=== PATIENT | male | born 1945 | race Caucasian/White ===

== ENCOUNTER 2018-07-22 00:13 | Emergency (ER) | payer MEDICARE ==
[2018-07-22] MEDS ORDERED: NS 0.9% 1000 ML** 1,000 ML IV ONE (01:05)
[2018-07-22] MEDS ORDERED: Diltiazem TAB* 60 MG PO ONE (01:06)
--- NOTE | 2018-07-22 01:24 | ED ---
GI/ HPI - HPI Summary HPI Summary: The patient is a 73 year old male who is presenting to the [facility] via ambulance with a chief complaint of urinary retention. The onset of the Urinary rentention was 8 hours prior to [facility] arrival. The patient discusses that he has been able to urinate a small amount. He denies N/V as well as back pain. The patient reports of diaphoresis. Symptoms are aggravated by nothing. Symptoms are alleviated by nothing. The pain is rated to be 10/10 in severity. He wishes to see a urologist as per RN/Triage report. - History of Current Complaint Chief Complaint: EDUrogenitalProblems Time Seen by Provider: 07/22/18 00:43 Stated Complaint: "I NEED TO SEE A UROLOGIST" PER PT Hx Obtained From: Patient Onset/Duration: Started Hours Ago - 8 hours ago on 07/21/18 Timing: Constant, Lasting Hours - 8 hours Severity: Severe Current Severity: Severe Pain Intensity: 10 Associated Signs and Symptoms: Positive: Diaphoresis, Cough, Other: - Urinary retention. Negative back pain. Negative: Nausea, Vomiting - Allergy/Home Medications Allergies/Adverse Reactions: Allergies Allergy/AdvReac Type Severity Reaction Status Date / Time No Known Allergies Allergy Verified 07/22/18 00:24 PMH/Surg Hx/FS Hx/Imm Hx Endocrine/Hematology History: Denies: Hx Diabetes, Hx Thyroid Disease Cardiovascular History: Reports: Hx Hypertension Respiratory History: Denies: Hx Asthma, Hx Chronic Obstructive Pulmonary Disease (COPD) GI History: Denies: Hx Ulcer Infectious Disease History: No Infectious Disease History: Denies: Hx Clostridium Difficile, Hx Hepatitis, Hx Human Immunodeficiency Virus (HIV), Hx of Known/Suspected MRSA, Hx Shingles, Hx Tuberculosis, Traveled Outside the in Last 30 Days - Family History Known Family History: Positive: Hypertension Family History: Cancer - Social History Occupation: Retired Alcohol Use: Daily Alcohol Amount: 1-2 glasses wine most days Substance Use Type: Reports: None Type: Cigarettes Amount Used/How Often: 1 ppd+ Review of Systems Positive: Skin Diaphoresis Eyes: Negative ENT: Negative Cardiovascular: Negative Respiratory: Negative Negative: Vomiting, Nausea Genitourinary: Other - Urinary retention Musculoskeletal: Other - Negative back pain Skin: Negative Neurological: Negative Psychological: Normal All Other Systems Reviewed And Are Negative: Yes Physical Exam - Summary Physical Exam Summary: Appearance: Well-appearing, Well-nourished, lying in bed comfortable Skin: Warm, dry, no obvious rash Eyes: sclera anicteric, no conjunctival pallor ENT: mucous membranes moist Neck: deferred Respiratory: No signs of respiratory distress Cardiovascular: Appears well perfused, pulses are nml Abdomen: deferred Musculoskeletal: Moving all 4 extremities without obvious discomfort Neurological: Awake and alert, mentation is normal, speech is fluent and appropriate Psychiatric: affect is normal, does not appear anxious or depressed Triage Information Reviewed: Yes Vital Signs On Initial Exam: Initial Vitals Temp Pulse Resp BP Pulse Ox 97.0 F 145 20 112/86 95 07/22/18 00:21 07/22/18 00:21 07/22/18 00:21 07/22/18 00:21 07/22/18 00:21 Vital Signs Reviewed: Yes Diagnostics - Vital Signs Vital Signs Temp Pulse Resp BP Pulse Ox 07/22/18 00:21 97.0 F 145 20 112/86 95 - Laboratory Result Diagrams: 07/22/18 01:23 07/22/18 01:23 Lab Statement: Any lab studies that have been ordered have been reviewed, and results considered in the medical decision making process. - EKG 0100 EKG Rhythm: Atrial Fibrillation - 141 bpm Summary of EKG Findings: An EKG reveals at 0100 AFib at 141 bpm with RVR, probable anteroseptal (old) GIGU Course/Dx - Course Course Of Treatment: The patient is a 73 year old male who is presenting to the [facility] with a chief complaint of urinary rentention. We had used a catheter to relieve the patient of his urine. During his stay in the [facility], the HR had become elevated. He received an EKG in the [facility] and reveal AFib wtih RVR. The patient's HR was observed and had decreased to a stable rate. The patient tells me he has a history of intermittent atrial fibrillation, and he is asymptomatic with this. I do not believe he needs to be hospitalized for this problem. I will start him on Cardizem for the time being. The physical exam reveals unremarkable findings. The patient will be discharged home with a dx of urinary retention and Afib with rapid ventricular response. - Diagnoses Provider Diagnoses: Atrial fibrillation with rapid ventricular response, Urinary retention Discharge - Sign-Out/Discharge Documenting (check all that apply): Patient Departure - Discharge Home Patient Received Moderate/Deep Sedation with Procedure: No - Discharge Plan Condition: Good Disposition: HOME Prescriptions: Diltiazem CD CAP* [Cardizem CD CAP*] 120 mg PO DAILY #15 cap.cd Patient Education Materials: Urinary Retention in Men (ED), Schwartz Catheter Placement and Care (ED) Referrals: Randy Ramirez MD [Medical Doctor] - Calvin Thompson MD [Medical Doctor] - Josiah Colbert MD [Medical Doctor] - Additional Instructions: Contact the urologist's office tomorrow for a followup. Leave the catheter in place until they can evaluate you. You should also consult a carton packaging machine operator about your atrial fibrillation. You may need further treatment such as an anticoagulant medication. I have prescribed some medication to control the heart rate, this will also probably need adjustment. - Billing Disposition and Condition Condition: GOOD Disposition: Home - Attestation Statements Document Initiated by Scribe: Yes Documenting Scribe: Beto Coon Provider For Whom Bill is Documenting (Include Credential): Dr. Shamar Steward Scribe Attestation: I, Beto Coon, scribed for Dr. Shamar Steward on 07/23/18 at 0507. Scribe Documentation Reviewed: Yes Provider Attestation: The documentation as recorded by the Beto gallagher accurately reflects the service I personally performed and the decisions made by me, Dr. Shamar Steward Status of Scribe Document: Viewed
[2018-07-22 01:36] LABS: ABS Basophils 0.1 10^3/ul (0-0.2); ABS Eosinophils 0 10^3/ul (0-0.6); ABS Lymphocytes 1.2 10^3/ul (1.0-4.8); ABS Monocytes 0.5 10^3/ul (0-0.8); ABS Neutrophils 7.9 10^3/ul (1.5-7.7); ABS Nucleated RBC 0 10^3/ul; Eosinophil % 0.4 %; Hematocrit 48 % (36-46); Hemoglobin 15.9 g/dL (14.0-18.0); Lymphocyte % 12.6 %; Mean Corpuscular HGB Conc 34 g/dL (31-36); Mean Corpuscular Hemoglobin 29 pg (27-31); Mean Corpuscular Volume 86 fL (80-94); Mean Platelet Volume 9.6 fL (7.4-10.4); Nucleated Red Blood Cells % 0; Platelet Count 161 10^3/uL (150-450); Red Blood Count 5.55 10^6 /uL (4.18-5.48); Red Cell Distribution Width 14 % (10.5-15); White Blood Count 9.8 10^3/uL (3.5-10.8)
[2018-07-22 01:51] LABS: Albumin 4.5 g/dL (3.2-5.2); Albumin/Globulin Ratio 1.4 (1-3); Calcium 9.6 mg/dL (8.6-10.3); EGFR African American 68.1 (>60); EGFR Non-African American 56.3 (>60); Globulin 3.2 g/dL (2-4); Total Bilirubin 0.5 mg/dL (0.2-1.0); Total Protein 7.7 g/dL (6.4-8.9)
[2018-07-22 02:05] LABS: TSH (Thyroid Stimulating Horm) 2.35 mcIU/mL (0.34-5.60)
[2018-07-22 02:48] VITALS: BP 101/58
== END 2018-07-22 02:46 | disposition home or self-care (01) ==
LOC: ED 00:13
DX: I48.91 Unspecified atrial fibrillation (principal); R33.9 Retention of urine, unspecified; F17.210 Nicotine dependence, cigarettes, uncomplicated; I10 Essential (primary) hypertension
CPT/HCPCS: 36415; 80053; 84443; 84484; 85025; 93005; 96360; 96361; 99283; A9270-GY

== ENCOUNTER 2018-08-06 21:46 | Emergency (ER) | payer MEDICARE ==
--- NOTE | 2018-08-06 22:41 | ED ---
GI/ HPI - HPI Summary HPI Summary: This patient is a 73 year old M presenting to [facility] with a chief complaint of urinary retention that began approximately 2 weeks ago. The patient rates the pain 5/10 in severity. Symptoms aggravated by nothing. Symptoms alleviated by nothing. Patient reports dysuria. Patient states he has previously had a catheter for these symptoms. - History of Current Complaint Chief Complaint: EDUrogenitalProblems Time Seen by Provider: 08/06/18 22:33 Stated Complaint: RENAL PROBLEMS PER PT Hx Obtained From: Patient Onset/Duration: Started Weeks Ago, Atraumatic, Still Present Timing: Constant Severity: Moderate Current Severity: Moderate Pain Intensity: 5 Associated Signs and Symptoms: Positive: Dysuria Aggravating Factor(s): Nothing Alleviating Factor(s): Nothing - Allergy/Home Medications Allergies/Adverse Reactions: Allergies Allergy/AdvReac Type Severity Reaction Status Date / Time No Known Allergies Allergy Verified 08/06/18 21:50 PMH/Surg Hx/FS Hx/Imm Hx Previously Healthy: No Endocrine/Hematology History: Denies: Hx Diabetes, Hx Thyroid Disease Cardiovascular History: Reports: Hx Hypertension Respiratory History: Denies: Hx Asthma, Hx Chronic Obstructive Pulmonary Disease (COPD) GI History: Denies: Hx Ulcer History: Denies: Hx Renal Disease Infectious Disease History: No Infectious Disease History: Denies: Hx Clostridium Difficile, Hx Hepatitis, Hx Human Immunodeficiency Virus (HIV), Hx of Known/Suspected MRSA, Hx Shingles, Hx Tuberculosis, Traveled Outside the [place] in Last 30 Days - Family History Known Family History: Positive: Hypertension Family History: Cancer - Social History Occupation: Retired Lives: Alone Alcohol Use: Daily Alcohol Amount: 1-2 glasses wine most days Hx Substance Use: No Substance Use Type: Reports: None Hx Tobacco Use: Yes Smoking Status (MU): Heavy Every Day Tobacco Smoker Type: Cigarettes Amount Used/How Often: 1 ppd+ Review of Systems Negative: Fever Genitourinary: Other - Positive urinary retention Positive: dysuria All Other Systems Reviewed And Are Negative: Yes Physical Exam - Summary Physical Exam Summary: VITAL SIGNS: Reviewed. GENERAL: Patient is a well-developed and nourished male who is lying comfortable in the stretcher. Patient is not in any acute respiratory distress. HEAD AND FACE: No signs of trauma. No ecchymosis, hematomas or skull depressions. No sinus tenderness. EYES: PERRLA, EOMI x 2, No injected conjunctiva, no nystagmus. EARS: Hearing grossly intact. Ear canals and tympanic membranes are within normal limits. MOUTH: Oropharynx within normal limits. NECK: Supple, trachea is midline, no adenopathy, no JVD, no carotid bruit, no c- spine tenderness, neck with full ROM CHEST: Symmetric, no tenderness at palpation LUNGS: Clear to auscultation bilaterally. No wheezing or crackles. CVS: Regular rate and rhythm, S1 and S2 present, no murmurs or gallops appreciated. ABDOMEN: Soft, non-tender. No signs of distention. No rebound no guarding, and no masses palpated. Bowel sounds are normal. EXTREMITIES: FROM in all major joints, no edema, no cyanosis or clubbing. NEURO: Alert and oriented x 3. No acute neurological deficits. Speech is normal and follows commands. SKIN: Dry and warm Triage Information Reviewed: Yes Vital Signs On Initial Exam: Initial Vitals Temp Pulse Resp BP Pulse Ox 98.5 F 88 16 172/90 94 08/06/18 21:47 08/06/18 21:47 08/06/18 21:47 08/06/18 21:47 08/06/18 21:47 Vital Signs Reviewed: Yes Diagnostics - Vital Signs Vital Signs Temp Pulse Resp BP Pulse Ox 08/06/18 21:47 98.5 F 88 16 172/90 94 - Laboratory Lab Statement: Any lab studies that have been ordered have been reviewed, and results considered in the medical decision making process. GIGU Course/Dx - Course Course Of Treatment: This patient is a 73 year old M presenting to [facility] with a chief complaint of urinary retention that began approximately 2 weeks ago. Physical Exam Findings: Nml. Bedside US shows an empty bladder. In the ED course the patient was given Pyridium. Already on doxycycline per his doctor. Patient refused to wait for urinalysis results. Patient will be given Pyridium for his urinary symptoms. Patient will be discharged home with a prescription for Pyridium and with follow up from urology. The patient is agreeable with this plan. - Diagnoses Provider Diagnoses: UTI (urinary tract infection) Discharge - Sign-Out/Discharge Documenting (check all that apply): Patient Departure - Discharge home Patient Received Moderate/Deep Sedation with Procedure: No - Discharge Plan Condition: Stable Disposition: HOME Prescriptions: Phenazopyridine TAB* [Pyridium 100 mg TAB*] 100 mg PO TID PRN #7 tab PRN Reason: Pain Patient Education Materials: Urinary Tract Infection in Men (ED) Referrals: Jose Hernandez [Primary Care Provider] - 2 Days Josiah Colbert MD [Medical Doctor] - 2 Days Additional Instructions: RETURN TO THE EMERGENCY DEPARTMENT FOR NEW OR WORSENING SYMPTOMS - Attestation Statements Document Initiated by Scribe: Yes Documenting Scribe: Irma Soares Provider For Whom Scribe is Documenting (Include Credential): Dr. Michelle Jansen MD Scribe Attestation: IIrma, scribed for Dr. Michelle Jansen MD on 08/06/18 at 2346. Status of Scribe Document: Ready
[2018-08-06] MEDS ORDERED: Phenazopyridine TAB* 100 MG PO ONE (22:55)
[2018-08-06 23:57] LABS: Urine Appearance Cloudy; Urine Bacteria Absent (Absent); Urine Bilirubin Negative (Negative); Urine Blood 3+ (Negative); Urine Color Yellow; Urine Glucose Negative (Negative); Urine Ketones Negative (Negative); Urine Nitrite Negative (Negative); Urine Protein 1+(30 mg/dL) (Negative); Urine Red Blood Cell 3+(>10/hpf) (Absent); Urine Squamous Epithelial Cell Present (Absent); Urine Transitional Epithelial Present (Absent); Urine Urobilinogen Negative (Negative); Urine White Blood Cell 3+(>20/hpf) (Absent)
[2018-08-07 00:24] VITALS: BP 111/69
== END 2018-08-06 23:55 | disposition home or self-care (01) ==
LOC: ED 21:46
DX: N39.0 Urinary tract infection, site not specified (principal); I10 Essential (primary) hypertension; F17.210 Nicotine dependence, cigarettes, uncomplicated; R30.0 Dysuria
CPT/HCPCS: 81003; 81015; 87086; 99283; A9270-GY